=== PATIENT | male | born 1970 | race African-American/Black ===

== ENCOUNTER 2017-08-03 06:11 | Emergency (ER) | payer OTHER ==
[~2017-08-03] VITALS: Ht 180.3 cm; Wt 77.0 kg
[~2017-08-03 06:11] MED LIST: HYDR-3535 PO; LISI-363 PO; MELO7.5; PRED20 PO
[2017-08-03 06:12] VITALS: BP 184/94; PULSE 72; RESP 18; TEMP 98.4; O2SAT 100
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
[2017-08-03] MEDS ORDERED: LISI10TA3 PO (06:51)
[2017-08-03] MEDS ORDERED: HYDR-3583 PO (06:51)
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
== END 2017-08-03 07:42 | disposition home or self-care (01) ==
LOC: NEPE 06:11
DX: M54.5 Low back pain (principal); V43.52XA Car driver injured in collision with other type car in traffic accident, initial encounter; I10 Essential (primary) hypertension; G89.29 Other chronic pain; F12.90 Cannabis use, unspecified, uncomplicated
CPT/HCPCS: 72110; 99283